=== PATIENT | male | born 1975 | race Caucasian/White ===

== ENCOUNTER 2018-05-04 20:23 | Emergency (ER) | payer SELFPAY ==
[~2018-05-04] VITALS: Ht 165.1 cm; Wt 76.7 kg
[2018-05-04 20:31] VITALS: BP 119/72
--- NOTE | 2018-05-04 20:35 | NUR ---
PT A/O X4. VSS. NEG ACUTE DISTRESS. NEG SOB. PT STABLE. SAFETY MEASURES IN PLACE.
[2018-05-04] MEDS ORDERED: LIDOCAINE 1% INJ 50 ML MDV IJ ONE (21:00)
[2018-05-04] MEDS ORDERED: TDAP [DIPH/PERTUSSIS/TET] 0.5 ML VIAL IM ONE ×2 (21:00→21:50)
[2018-05-04] MEDS ORDERED: CELLULOSE,OXIDIZED 1 PKT EACH MC ONE (21:30)
== END 2018-05-04 21:54 | disposition home or self-care (01) ==
LOC: ER 20:31
DX: S61.311A Laceration without foreign body of left index finger with damage to nail, initial encounter (principal); E11.9 Type 2 diabetes mellitus without complications; W26.8XXA Contact with other sharp object(s), not elsewhere classified, initial encounter; Y93.89 Activity, other specified; Y92.89 Other specified places as the place of occurrence of the external cause; Y99.0 Civilian activity done for income or pay
CPT/HCPCS: 90471; 90715; 99283; A4606; A6402; Z7610